=== PATIENT | male | born 1975 | race Caucasian/White ===

== ENCOUNTER 2022-05-13 15:20 | Emergency (ER) | payer MEDICAID ==
[~2022-05-13] VITALS: Ht 172.7 cm; Wt 81.8 kg
[2022-05-13 15:24] VITALS: BP 147/110
== END 2022-05-13 18:34 | disposition left against medical advice (07) ==
LOC: ER 15:20
DX: S61.216A Laceration without foreign body of right little finger without damage to nail, initial encounter (principal); Z53.21 Procedure and treatment not carried out due to patient leaving prior to being seen by health care provider; X58.XXXA Exposure to other specified factors, initial encounter; Y93.89 Activity, other specified; Y92.89 Other specified places as the place of occurrence of the external cause; Y99.8 Other external cause status
CPT/HCPCS: 73140

== ENCOUNTER 2024-02-19 17:02 | Emergency (ER) | payer MEDICAID, OTHER ==
[~2024-02-19] VITALS: Ht 172.7 cm; Wt 82.0 kg
[2024-02-19 18:59] LABS: BASOPHILS % (AUTO) 0.7 % (0-1); EOSINOPHILS # (AUTO) 0.1 X10'3 (0-0.9); EOSINOPHILS % (AUTO) 2.2 % (0-6); HEMATOCRIT 47.1 % (42.0-52.0); HEMOGLOBIN 16.3 g/dl (14.0-17.9); LYMPHOCYTES # (AUTO) 2.2 X10'3 (1.1-4.8); LYMPHOCYTES % (AUTO) 40.3 % (21-51); MEAN CORPUSCULAR HEMOGLOBIN 33.6 PG (27.0-31.0); MEAN CORPUSCULAR HGB CONC 34.6 g/dL (33.0-36.5); MEAN CORPUSCULAR VOLUME 97.1 FL (78-98); MEAN PLATELET VOLUME 6.5 FL (7.4-10.4); MONOCYTES # (AUTO) 0.4 X10'3 (0-0.9); MONOCYTES % (AUTO) 7.9 % (2-12); NEUTROPHILS # (AUTO) 2.7 X10'3 (1.8-7.7); NEUTROPHILS % (AUTO) 48.9 % (42-75); PLATELET COUNT 336 X10'3 (140-440); RED BLOOD COUNT 4.85 X10'6 (4.70-6.10); WHITE BLOOD COUNT 5.4 X10'3 (4.5-11.0)
[2024-02-19] MEDS: normal saline 1000ML IV soln IVB ONE (19:01)
[2024-02-19] MEDS: acetaminophen 1,000mg/100ml IV 100 ML IV STA (19:01)
[2024-02-19] MEDS: ondansetron/PF 4mg/2ml inj IV ONE (19:01)
[2024-02-19 19:03] LABS: ALANINE AMINOTRANSFERASE 46 U/L (12-78); ALBUMIN 4.4 G/DL (3.4-5.0); ALKALINE PHOSPHATASE 89 IU/L (46-116); ANION GAP 13 (8-16); ASPARTATE AMINO TRANSFERASE 27 U/L (10-37); BILIRUBIN,TOTAL 0.4 MG/DL (0.1-1.0); BLOOD UREA NITROGEN 7 MG/DL (7-18); BUN/CREATININE RATIO 8.9 (10.0-20.0); CALCIUM 9.1 MG/DL (8.5-10.1); CHLORIDE 105 MMOL/L (99-107); CREATININE 0.79 MG/DL (0.60-1.10); GLUCOSE 93 MG/DL (70-104); POTASSIUM 3.6 MMOL/L (3.5-5.1); SODIUM 141 MMOL/L (135-145); TOTAL CARBON DIOXIDE 23.2 MMOL/L (24-32); TOTAL PROTEIN 8.6 G/DL (6.4-8.2); eCRCL 113 ML/MIN; eGFR > 90 ML/MIN
[2024-02-19 19:07] LABS: ETHANOL 236 MG/DL (<10)
[2024-02-19] MEDS ORDERED: ketorolac trometh. 30mg/ml inj. IV ONE (20:50)
[2024-02-19] MEDS: ketorolac tromethamine 15mg/ml inj. IV ONE (20:56)
[2024-02-20 03:39] VITALS: BP 128/80; PULSE 79; RESP 16; TEMP 98.3; O2SAT 97
== END 2024-02-20 03:46 | disposition home or self-care (01) ==
LOC: ER 17:02
DX: S93.402A Sprain of unspecified ligament of left ankle, initial encounter (principal); R11.2 Nausea with vomiting, unspecified; F10.129 Alcohol abuse with intoxication, unspecified; R06.02 Shortness of breath; W01.0XXA Fall on same level from slipping, tripping and stumbling without subsequent striking against object, initial encounter; Y93.89 Activity, other specified; Y92.89 Other specified places as the place of occurrence of the external cause; Y99.8 Other external cause status; R51.9 Headache, unspecified
CPT/HCPCS: 36415; 70450; 71045; 72125; 73600; 73620; 80053; 80320; 84484; 85025; 86885; 86900; 86901; 93005; 96374; 96375; 99285; J0131; J1885; J2405; J7030; L0172